=== PATIENT | male | born 1960 | race Caucasian/White ===

== ENCOUNTER 2017-08-27 11:30 | Day surgery (SDC) | payer BC ==
[~2017-08-27] VITALS: Ht 175.3 cm; Wt 107.5 kg
[2017-08-27] MEDS ORDERED: LR 1,000 ML IV.SOLN IV ONE (11:31)
[2017-08-27] MEDS ORDERED: BUPIVACAINE /PF 0.5% 30 ML VIAL INJ ONE (11:31)
[2017-08-27] MEDS ORDERED: KETAMINE HCL 500 MG/10 ML VIAL IVP ONE (11:31)
[2017-08-27] MEDS ORDERED: MIDAZOLAM HCL 5 MG/ML VIAL (VERSED) IV ONE (11:31)
[2017-08-27] MEDS ORDERED: MORPHINE 4 MG/ML INJ. SYRINGE ONE (15:04)
[2017-08-27] MEDS ORDERED: MORPHINE 2 MG/ML INJ. SYRINGE IVP PRN ×2 (15:15)
[2017-08-27 15:53] VITALS: BP_SYST 128
== END 2017-08-27 18:00 | disposition home or self-care (01) ==
LOC: SDS 11:30 → SMU 11:30 → SDS 18:00
PROVIDERS: ATTEND Orthopaedic Surgery
DX: G56.01 Carpal tunnel syndrome, right upper limb (principal); E78.00 Pure hypercholesterolemia, unspecified; Z79.899 Other long term (current) drug therapy; Z88.8 Allergy status to other drugs, medicaments and biological substances; E66.3 Overweight; E11.40 Type 2 diabetes mellitus with diabetic neuropathy, unspecified; M19.90 Unspecified osteoarthritis, unspecified site; I10 Essential (primary) hypertension
CPT/HCPCS: 64721; J2250; J2270; J3490; J7120